=== PATIENT | female | born 1945 | race Caucasian/White ===

== ENCOUNTER 2018-03-06 07:03 | Day surgery (SDC) | payer MEDICARE, OTHER ==
[~2018-03-06 07:03] MED LIST: Acetaminophen TAB* 325 MG PO PRN; Buffered Lidocaine 0.9% SYRIN* 5 ML/SYR SYRINGE INTRADERM ONE
[2018-03-06] MEDS ORDERED: Midazolam* 1 MG/ML 2 ML VIAL (2 MG) ONE (09:07)
[2018-03-06 09:37] VITALS: BP 132/86
[2018-03-06] MEDS ORDERED: acetaZOLAMIDE TAB* 250 MG ONE (13:27)
[2018-03-06] MEDS ORDERED: Povidone Iodine 5% OPTH* 30 ML BTL ONE (13:27)
[2018-03-06] MEDS ORDERED: Phenylephrine 2.5% OPTH.SOL* 2 ML BTL ONE (13:27)
[2018-03-06] MEDS ORDERED: Ketorolac 0.5% OPHTH (NF) 0.5 % 5 ML BTL ONE (13:27)
[2018-03-06] MEDS ORDERED: Cyclopentolate 1% OPTH.SOL* 2 ML BTL ONE (13:27)
[2018-03-06] MEDS ORDERED: Proparacaine 0.5% OPHTH.SOL* 15 ML BTL ONE (13:27)
[2018-03-06] MEDS ORDERED: Lidocaine 2% EPI 1:200000 MPF*10-20 ML VIAL ONE (13:27)
[2018-03-06] MEDS ORDERED: Neomycin/Polymy/Dex OPTH.SUSP* MAXITROL 0.1% 5 ML ONE (13:27)
[2018-03-06] MEDS ORDERED: Lidocaine 1% MPF* 2 ML VIAL ONE (13:58)
--- NOTE | 2018-03-07 04:57 | OP ---
Amended report to correct patient account number. DATE OF OPERATION: 03/06/18 [facility] DATE OF : 41 SURGEON: Kobi Flowers M.D. PREOPERATIVE DIAGNOSIS: Cataract, right eye. POSTOPERATIVE DIAGNOSIS: Cataract, right eye. OPERATIVE PROCEDURE: Extracapsular cataract extraction with intraocular lens implant, right eye. DESCRIPTION OF PROCEDURE: The patient was brought to the operating room after being given 1/2% Alcaine with epinephrine drops in the preoperative area. The eye was prepped and draped in the usual sterile fashion. Sterile drape and eyelid speculum were placed. Again, topical 1/2% Alcaine with epinephrine was given. A paracentesis incision was made at the 9 o'clock position with the No.75 blade. Clear cornea incision 2.2 x 2.2-mm was created at the 12 o'clock position starting at the anterior limbus using the 2.2-mm keratome. The anterior chamber was irrigated with 0.4 mL of 1% non-preservative intracameral lidocaine and filled with DisCoVisc. A capsulorrhexis was completed using the cystotome and the Utrata forceps. Hydrodissection was performed with balanced salt solution. The lens nucleus was removed with the Phacoemulsification handpiece without incident. Cortex was removed with the irrigation-aspiration handpiece. The capsular bag was re-inflated using DisCoVisc and an [id number] 24.5 implant was inserted with the shooter, oriented to 156 degree meridian. Horizontal reference ramesh made with the patient in a seated position in the preoperative area. The irrigation-aspiration handpiece was used to remove all residual DisCoVisc. The eye was refilled with balanced salt solution and the wound checked and found to be watertight. Topical Maxitrol drops were given. [id number]/[facility] #: [id number] [facility]
== END 2018-03-06 09:47 | disposition home or self-care (01) ==
LOC: OREAST 07:03
PROVIDERS: ATTEND Specialist
DX: H25.11 Age-related nuclear cataract, right eye (principal); H53.022 Refractive amblyopia, left eye; I10 Essential (primary) hypertension; E78.00 Pure hypercholesterolemia, unspecified; K21.9 Gastro-esophageal reflux disease without esophagitis; E78.5 Hyperlipidemia, unspecified; E03.9 Hypothyroidism, unspecified
CPT/HCPCS: A9270-GY; J2250; V2787

== ENCOUNTER 2018-03-27 07:20 | Day surgery (SDC) | payer MEDICARE, OTHER ==
--- NOTE | 2018-03-07 04:57 | OP ---
DATE OF OPERATION: 03/06/18 [facility] DATE OF : 41 SURGEON: Kobi Flowers M.D. PREOPERATIVE DIAGNOSIS: Cataract, right eye. POSTOPERATIVE DIAGNOSIS: Cataract, right eye. OPERATIVE PROCEDURE: Extracapsular cataract extraction with intraocular lens implant, right eye. DESCRIPTION OF PROCEDURE: The patient was brought to the operating room after being given 1/2% Alcaine with epinephrine drops in the preoperative area. The eye was prepped and draped in the usual sterile fashion. Sterile drape and eyelid speculum were placed. Again, topical 1/2% Alcaine with epinephrine was given. A paracentesis incision was made at the 9 o'clock position with the No.75 blade. Clear cornea incision 2.2 x 2.2-mm was created at the 12 o'clock position starting at the anterior limbus using the 2.2-mm keratome. The anterior chamber was irrigated with 0.4 mL of 1% non-preservative intracameral lidocaine and filled with DisCoVisc. A capsulorrhexis was completed using the cystotome and the Utrata forceps. Hydrodissection was performed with balanced salt solution. The lens nucleus was removed with the Phacoemulsification handpiece without incident. Cortex was removed with the irrigation-aspiration handpiece. The capsular bag was re-inflated using DisCoVisc and an [id number] 24.5 implant was inserted with the shooter, oriented to 156 degree meridian. Horizontal reference ramesh made with the patient in a seated position in the preoperative area. The irrigation-aspiration handpiece was used to remove all residual DisCoVisc. The eye was refilled with balanced salt solution and the wound checked and found to be watertight. Topical Maxitrol drops were given. [id number]/[facility] #: [id number] [facility]
[~2018-03-27 07:20] MED LIST changes: -Acetaminophen TAB* 325 MG PO PRN
[2018-03-27] MEDS ORDERED: Midazolam* 1 MG/ML 2 ML VIAL (2 MG) ONE (09:07)
[2018-03-27] MEDS ORDERED: Povidone Iodine 5% OPTH* 30 ML BTL ONE (09:25)
[2018-03-27] MEDS ORDERED: Neomycin/Polymy/Dex OPTH.SUSP* MAXITROL 0.1% 5 ML ONE (09:25)
[2018-03-27] MEDS ORDERED: Lidocaine 2% EPI 1:200000 MPF*10-20 ML VIAL ONE (09:25)
[2018-03-27] MEDS ORDERED: Ketorolac 0.5% OPHTH (NF) 0.5 % 5 ML BTL ONE (09:25)
[2018-03-27] MEDS ORDERED: Lidocaine 1%* 5 ML VIAL ONE (09:25)
[2018-03-27] MEDS ORDERED: Cyclopentolate 1% OPTH.SOL* 2 ML BTL ONE (09:25)
[2018-03-27] MEDS ORDERED: Phenylephrine 2.5% OPTH.SOL* 2 ML BTL ONE (09:25)
[2018-03-27] MEDS ORDERED: Proparacaine 0.5% OPHTH.SOL* 15 ML BTL ONE (09:26)
[2018-03-27 09:52] VITALS: BP 111/69
[2018-03-27] MEDS ORDERED: acetaZOLAMIDE TAB* 250 MG ONE (10:07)
--- NOTE | 2018-03-28 06:39 | OP ---
DATE OF OPERATION: 03/27/18 [facility] DATE OF : 41 SURGEON: Kobi Flowers M.D. PREOPERATIVE DIAGNOSIS: Cataract, left eye. POSTOPERATIVE DIAGNOSIS: Cataract, left eye. OPERATIVE PROCEDURE: Extracapsular cataract extraction with intraocular lens implant, left eye. DESCRIPTION OF PROCEDURE: The patient was brought to the operating room after being given 1/2% Alcaine with epinephrine drops in the preoperative area. The eye was prepped and draped in the usual sterile fashion. Sterile drape and eyelid speculum were placed. Again, topical 1/2% Alcaine with epinephrine was given. A paracentesis incision was made at the 3 o'clock position with the No.75 blade. Clear cornea incision 2.2 x 2.2-mm was created at the 6 o'clock position starting at the anterior limbus using the 2.2-mm keratome. The anterior chamber was irrigated with 0.4 mL of 1% non-preservative intracameral lidocaine and filled with DisCoVisc. A capsulorrhexis was completed using the cystotome and the Utrata forceps. Hydrodissection was performed with balanced salt solution. The lens nucleus was removed with the Phacoemulsification handpiece without incident. Cortex was removed with the irrigation-aspiration handpiece. The capsular bag was re-inflated using DisCoVisc and an [id number] implant was inserted with the shooter. The irrigation-aspiration handpiece was used to remove all residual DisCoVisc. The eye was refilled with balanced salt solution and the wound checked and found to be watertight. Topical Maxitrol drops were given. [id number]/[facility] #: [id number] [facility]
== END 2018-03-27 10:00 | disposition home or self-care (01) ==
LOC: OREAST 07:20
PROVIDERS: ATTEND Specialist
DX: H25.12 Age-related nuclear cataract, left eye (principal); H53.022 Refractive amblyopia, left eye; E78.5 Hyperlipidemia, unspecified; I10 Essential (primary) hypertension; E03.9 Hypothyroidism, unspecified; Z88.1 Allergy status to other antibiotic agents; K21.9 Gastro-esophageal reflux disease without esophagitis; Z85.3 Personal history of malignant neoplasm of breast
CPT/HCPCS: A9270-GY; J2250; V2632

== ENCOUNTER 2024-07-02 14:09 | Observation (INO) ==
[2024-07-02 17:34] LABS: ABS Lymphocytes 0.7 10^3/uL (1.0-4.8); ABS Monocytes 0.5 10^3/uL (0.0-0.9); ABS Neutrophils 5.4 10^3/uL (1.5-7.6); Eosinophil % 0.1 %; Hematocrit 30.5 % (35-45); Hemoglobin 10.2 g/dL (11.5-14.3); Lymphocyte % 9.9 %; Mean Corpuscular Hemoglobin 30.2 pg (27-33); Mean Corpuscular Hgb Conc 33.3 g/dL (31-36); Mean Corpuscular Volume 90.8 fL (80-97); Mean Platelet Volume 8.6 fL (7.5-11.2); Platelet Count 189 10^3/uL (150-450); Red Blood Count 3.36 10^6/uL (3.63-4.92); Red Cell Distribution Width 13.5 % (12-17); White Blood Count 6.6 10^3/uL (3.8-11.8)
[2024-07-02 17:38] LABS: Activated Partial Thrombo Time 27.3 seconds (26.0-38.0); INR 1.02 (0.85-1.14)
[2024-07-02 18:00] LABS: Albumin 3.9 g/dL (3.2-5.2); Albumin/Globulin Ratio 1.5 (1-3); Calcium 9.1 mg/dL (8.6-10.3); Creatinine, Serum 3.24 mg/dL (0.51-0.95); Globulin 2.6 g/dL (2-4); Potassium 4.7 mmol/L (3.5-5.0); Total Bilirubin 0.5 mg/dL (0.2-1.0); Total Protein 6.5 g/dL (6.4-8.9); eGFR CKD-EPI 13.8 (>60)
[2024-07-02] MEDS: Morphine 2 MG/ML SYRINGE IV ONE (18:08)
[2024-07-02] MEDS ORDERED: Senna TAB 8.6 mg TAB PO PRN (18:38)
[2024-07-02 19:06] LABS: High Sensitivity Troponin 1 Hr 18 pg/mL (<15)
[2024-07-02 23:55] LABS: Urine Appearance Clear; Urine Bilirubin Negative (Negative); Urine Blood Negative (Negative); Urine Color Light-Yellow; Urine Glucose Negative (Negative); Urine Ketones Negative (Negative); Urine Nitrite Negative (Negative); Urine Protein 2+ (>=100 mg/dL) (Negative); Urine Specific Gravity 1.012 (1.002-1.030); Urine Urobilinogen Negative (Negative); Urine pH 5.5 (5.0-8.0)
[2024-07-03 00:12] LABS: Urine Bacteria 1+ /HPF (Absent); Urine Red Blood Cell Trace(0-2/hpf) /HPF (0-Trace); Urine Squamous Epithelial Cell Present /HPF (Absent); Urine White Blood Cell 1+(6-10/hpf) /HPF (0-Trace)
[2024-07-03 06:59] LABS: ABS Lymphocytes 0.7 10^3/uL (1.0-4.8); ABS Monocytes 0.4 10^3/uL (0.0-0.9); ABS Neutrophils 4.8 10^3/uL (1.5-7.6); ABS Nucleated RBC 0.01 10^3/ul; Eosinophil % 0.4 %; Hematocrit 32.1 % (35-45); Hemoglobin 10.9 g/dL (11.5-14.3); Lymphocyte % 11.8 %; Mean Corpuscular Hgb Conc 33.9 g/dL (31-36); Mean Corpuscular Volume 91.4 fL (80-97); Mean Platelet Volume 8.4 fL (7.5-11.2); Nucleated Red Blood Cells % 0.1 %/100WBC (0.0-0.8); Platelet Count 185 10^3/uL (150-450); Red Blood Count 3.51 10^6/uL (3.63-4.92); Red Cell Distribution Width 13.3 % (12-17)
[2024-07-03 07:32] LABS: Calcium 9.3 mg/dL (8.6-10.3); Creatinine, Serum 3.03 mg/dL (0.51-0.95); Magnesium 1.7 mg/dL (1.9-2.7); Potassium 4.9 mmol/L (3.5-5.0)
[2024-07-03] MEDS ORDERED: ceFAZolin 2 GM PREMIX 2 GM/50 ML BAG ONE (15:04)
[2024-07-03] MEDS ORDERED: Acetaminophen IV 1 GM/100ML 1,000 MG/100 ML BAG IV ONE (15:13)
[2024-07-03] MEDS ORDERED: Naloxone 0.4 mg VIAL 0.4 mg/ml 1 ml VIAL IV PRN (15:13)
[2024-07-03] MEDS ORDERED: Ondansetron 4 mg VIAL 2 MG/ML 2 ml VIAL IV PRN (15:13)
[2024-07-03] MEDS ORDERED: Scopolamine 1 mg/72hr PATCH TRANSDERM ONE (15:13)
[2024-07-03] MEDS ORDERED: Metoclopramide 5 MG/ML VIAL (10 mg) IV PRN (15:13)
[2024-07-03] MEDS ORDERED: Buffered Lidocaine 1% SYRIN 1 ml INTRADERM ONE (15:13)
[2024-07-03] MEDS ORDERED: Propofol 10 MG/ML 20 ML BTL ONE (15:52)
[2024-07-03] MEDS ORDERED: Lidocaine 2% PF 5 ML VIAL ONE (15:52)
[2024-07-03] MEDS ORDERED: Rocuronium 50 mg VIAL 10 mg/ml 5 ml VIAL (50 mg) ONE (15:54)
[2024-07-03] MEDS ORDERED: fentaNYL 100 mcg/2 ml 50 MCG/ML VIAL ONE ×3 (15:55→18:58)
[2024-07-03] MEDS ORDERED: NS 0.45% 1000 ml BAG 1,000 ML IV SCH (16:00)
[2024-07-03] MEDS ORDERED: Lactated Ringers 1000 ml BAG 1,000 ML IV SCH (16:00)
[2024-07-03] MEDS ORDERED: Dexamethasone IV 4 MG/ML VIAL 1 ml VIAL ONE (16:54)
[2024-07-03] MEDS ORDERED: Ondansetron 4 mg VIAL 2 MG/ML 2 ml VIAL ONE (16:54)
[2024-07-03] MEDS ORDERED: Sodium Chloride 0.9% 20 ML ONE (17:05)
[2024-07-03] MEDS: fentaNYL 100 mcg/2 ml 50 MCG/ML VIAL IV PRN (19:27)
[2024-07-03] MEDS ORDERED: Magnesium Hydroxide LIQ 30 ML UDC PO PRN (20:45)
[2024-07-03] MEDS ORDERED: Polyethylene Glycol 3350 17 GM PACKET PO PRN (20:45)
[2024-07-03] MEDS: Lactated Ringers 1000 ml BAG 1,000 ML IV SCH (22:45)
[2024-07-03] MEDS: Magnesium Sulfate 2 gm BAG 2 GM/50 ML BAG IVPB ONE (22:47)
[2024-07-03] MEDS: Enoxaparin 30 MG/0.3 ML SYR SUBCUT SCH (23:10)
[2024-07-04] MEDS: Magnesium Sulfate IV 1GM/100ML 1 GM/100 ML BAG IV ONE (02:27)
[2024-07-04 05:56] LABS: ABS Lymphocytes 0.3 10^3/uL (1.0-4.8); ABS Monocytes 0.3 10^3/uL (0.0-0.9); ABS Neutrophils 4.6 10^3/uL (1.5-7.6); Lymphocyte % 6.7 %; Mean Corpuscular Hemoglobin 30.4 pg (27-33); Mean Corpuscular Hgb Conc 33.4 g/dL (31-36); Mean Corpuscular Volume 90.9 fL (80-97); Mean Platelet Volume 8.3 fL (7.5-11.2); Platelet Count 173 10^3/uL (150-450); Red Cell Distribution Width 13.7 % (12-17); White Blood Count 5.2 10^3/uL (3.8-11.8)
[2024-07-04 06:35] LABS: Calcium 8.9 mg/dL (8.6-10.3); Creatinine, Serum 3.34 mg/dL (0.51-0.95); Magnesium 3.3 mg/dL (1.9-2.7); Potassium 5.4 mmol/L (3.5-5.0); eGFR CKD-EPI 13.3 (>60)
[2024-07-04 10:40] VITALS: BP 101/62
[2024-07-04] MEDS: CMCS: Irbesartan 150 mg TAB (NF) PO SCH (11:00)
[2024-07-04] MEDS: ceFAZolin 1 GM in Dextrose 1 GM/50 ML BAG IVPB SCH (15:54)
[2024-07-04] MEDS: Enoxaparin 30 MG/0.3 ML SYR SUBCUT SCH (17:05)
== END 2024-07-04 17:15 | disposition home or self-care (01) ==
LOC: ED 14:09 → EDHOLD 14:09 → SSU 07-03 11:06
PROVIDERS: ADMIT Internal Medicine; ATTEND Internal Medicine